=== PATIENT | female | born 2000 | race Caucasian/White ===

== ENCOUNTER 2024-11-11 16:41 | Emergency (ER) | payer MEDICAID ==
[~2024-11-11] VITALS: Ht 165.1 cm; Wt 109.1 kg
[2024-11-11] MEDS ORDERED: VRAYLAR1.5 MG PO (17:01)
[2024-11-11] MEDS ORDERED: GLUCOPHAGE PO (17:03)
[2024-11-11] MEDS ORDERED: VENLAFAXINE HCL50 MG PO (17:03)
[2024-11-11 18:34] VITALS: BP 98/78
== END 2024-11-11 18:34 | disposition home or self-care (01) ==
LOC: ED 16:41
DX: R51.9 Headache, unspecified (principal); T40.725A Adverse effect of synthetic cannabinoids, initial encounter